=== PATIENT | male | born 1970 | race Caucasian/White ===

== ENCOUNTER 2021-04-19 07:59 | Outpatient (REF) | payer BC, SELFPAY | END 2021-04-19 08:00 | disposition home or self-care (01) | LOC: HO.WFDLDS 07:59 | PROVIDERS: Visit Provider Hospitalist | DX: Z13.89 Encounter for screening for other disorder (principal) | CPT/HCPCS: 36415; 85027 ==

== ENCOUNTER → 2021-06-21 08:13 | Outpatient (BNVA) | payer BC, SELFPAY | PROVIDERS: PCP Hospitalist; Referring Provider Hospitalist; Visit Provider Nurse Practitioner Family ==

== ENCOUNTER 2021-06-21 09:38 | Outpatient (REF) | payer BC, SELFPAY ==
[2021-06-21 12:23] LABS: Alanine Aminotransferase 33 U/L (0-40); Albumin Level 4.4 g/dL (3.5-5.0); Alkaline Phosphatase 89 U/L (39-117); Anion Gap 19 (12-20); Aspartate Amino Transferase 40 U/L (5-37); Bilirubin Total 2.6 mg/dL (0.0-1.0); Blood Urea Nitrogen 10 mg/dL (9-16); Carbon Dioxide 25 mmol/L (22-29); Chloride 94 mmol/L (96-108); Estimated Glomerular Filt Rate > 60; Glucose Random 179 mg/dL (60-115); Potassium 3.2 mmol/L (3.3-5.1); Sodium 135 mmol/L (135-145)
== END 2021-06-21 09:39 | disposition home or self-care (01) ==
LOC: HO.WFDLDS 09:38
PROVIDERS: Visit Provider Nurse Practitioner Family
DX: Z01.818 Encounter for other preprocedural examination (principal); K62.5 Hemorrhage of anus and rectum; K64.9 Unspecified hemorrhoids
CPT/HCPCS: 36415; 80053

== ENCOUNTER 2023-02-11 14:41 | Outpatient (AMB) | payer OTHER, SELFPAY ==
--- NOTE | 2023-02-11 14:50 | MHC.PC.OV ---
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 Required: No Allergies Seasonal Allergies Allergy (Mild, Verified 02/11/23 15:07) Post nasal Drip Medication List - Last Reconciled 02/11/23 by Mame Paige CNP cholecalciferol (vitamin D3) 125 mcg PO DAILY losartan-hydrochlorothiazide 100-25 mg 1 tab PO DAILY 3 months Tobacco use date assessed: 02/11/23 Dental Screening Dental Screen Date: 02/11/23 Did you have a dental visit in the last 12 months?: Yes Did you have a dental problem in the last 6 months where you did not have access to dental care?: No Was dental information given to patient?: Patient has dentist HPI HPI Comments History of Present Illness Details 52 y/o male presents for refill of losartan-HCTZ He was last evaluated by his PCP, ROMINA, and had blood blood work done in late 2010 He notes he has been taking his medications as prescribed No acute symptoms. [facility] Medical History No pertinent past medical history Surgical History History of cholecystectomy History of colonoscopy Family History Father No problems noted. Mother No problems noted. 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 Cognitive needs: No Hearing needs: No Vision needs: Yes Review of Systems Const Details: Const Denies chills, Denies fatigue, Denies fever(s), Denies headache(s) and Denies weakness ENT Denies dizziness and Denies headache(s) Card Denies chest pain, Denies lightheadedness, Denies dyspnea and Denies other (Palpitations) Resp Denies cough, Denies dyspnea, Denies wheezing and Denies other ( shortness of breath) GI Denies abdominal pain, Denies melena, Denies hematochezia, Denies change in bowel habits, Denies dyspepsia and Denies nausea Denies hematuria and Denies dysuria Musc Denies abnormal gait, Denies myalgias, Denies arthralgias, Denies numbness and Denies tingling Skin/Breast Denies rash, Denies unusual bruising and Denies wounds Neuro Denies abnormal gait, Denies dizziness, Denies headache(s), Denies memory loss, Denies numbness, Denies Sensory deficit (Neuro), Denies tingling and Denies weakness Psych Denies anxiety and Denies depression Endo Denies fatigue Aller/Immun Denies wheezing Physical exam (Primary Care) Vital Signs: Last Vital Signs Temp 98.8 F 02/11/23 14:51 Pulse 85 02/11/23 14:51 Resp 12 02/11/23 14:51 BP 134/70 02/11/23 14:51 Pulse Ox 99 02/11/23 14:51 Oxygen Delivery Method Room Air 02/11/23 14:51 BMI result Body Mass Index 38.5 Tobacco/Smoking Status: Tobacco use Status Tobacco use date assessed 02/11/23 02/11/23 15:02 Patient Tobacco Use Status Never used Tobacco 02/11/23 15:02 e-Cigarette/Vaping Use Never Used 02/11/23 15:02 Const Other: General: no acute distress and well developed Nutritional Appearance: well nourished Orientation/consciousness: patient oriented x3 HENMT Head: Yes normocephalic and Yes atraumatic Eyes General: appearance normal, both eyes and all related structures Pupils: Equal, round and reactive pupils present EOM: EOMs intact bilaterally Resp Effort & Inspection: normal respiratory effort Auscultation: clear to auscultation bilaterally Cardio Rate: regular rate Rhythm: regular rhythm Heart sounds: S1 normal heart sound present, S2 normal heart sound present, no gallops, murmurs presents, and no rubs GI Palpation (GI): No Abdominal aortic bruit present, Soft to palpation, nontender, No hepatosplenomegaly present and No Rebound tenderness present Auscultation: normal bowel sounds General: Yes no CVA tenderness Back/Spine/Pelvis Back: no CVA tenderness Cervical Spine: cervical ROM normal and No Cervical spine tenderness Thoracic/Lumbar Spine: thoraco-lumbar ROM normal, No pain with thoraco-lumbar ROM, No thoracic spinal tenderness and No lumbar spinal tenderness Extrem General: Yes normal to inspection, No edema and No calf tenderness Skin General: warm and dry. Normal skin color. Normal skin turgor Lesions: no lesions Rashes: no rashes Trauma: no lacerations or abrasions Wounds: no wounds Nails: normal Neuro General: patient oriented x3, gait normal and no focal neuro deficit Cranial nerves: Yes Equal, round and reactive pupils present Cognition (Neuro): normal cognition Gait exam (Neuro): Normal gait present Sensory Exam: No Sensory deficit (Neuro) Psych Affect: normal affect Assessment and Plan Assessment & Plan (1) Hypertension, essential, benign: Code(s): I10 - Essential (primary) hypertension Plan: Blood pressure is controlled, 134/70 Losartan-hydrochlorothiazide refilled. Take as prescribed Low-sodium diet encouraged Advised to follow-up with PCP for hypertension and health maintenance Return with symptoms or concerns Verbalized understanding and agreed with treatment plan. (2) Murmur: Code(s): R01.1 - Cardiac murmur, unspecified Plan: Denies history of heart murmurs Murmurs present Referred to Cardiology Advised to follow-up with concerns or symptoms Verbalized understanding and agreed with the plan. Orders: Referrals Cardiology Referral I10 - Essential (primary) hypertension, R01.1 - Cardiac murmur, unspecified Medications: Refilled losartan-hydrochlorothiazide 100-25 mg 1 tab PO DAILY 90 tabs 1RF 3 months I10 - Essential (primary) hypertension Coding Level of Care Code Est Pt Level 3 (45225) Diagnoses Hypertension, essential, benign I10 Murmur R01.1 Time Spent (min) 25
[2023-02-11 14:51] VITALS: BP 134/70; PULSE 85; RESP 12; TEMP 37.1; O2SAT 99; BMI 38.5
== END 2023-02-11 15:56 | disposition home or self-care (01) ==
PROVIDERS: PCP Hospitalist; Visit Provider Nurse Practitioner Family
DX: I10 Essential (primary) hypertension (principal); R01.1 Cardiac murmur, unspecified
CPT/HCPCS: 99213